=== PATIENT | female | born 1990 | race Caucasian/White ===

== ENCOUNTER 2017-02-08 20:59 | Emergency (ER) | payer OTHER ==
[2017-02-08 23:35] VITALS: BP 127/76
== END 2017-02-08 23:35 | disposition home or self-care (01) ==
LOC: ED 20:59
DX: R21 Rash and other nonspecific skin eruption (principal); K21.9 Gastro-esophageal reflux disease without esophagitis; M41.9 Scoliosis, unspecified

== ENCOUNTER 2017-11-06 09:00 | Emergency (ER) | payer OTHER ==
[~2017-11-06] VITALS: Ht 160 cm; Wt 54.4 kg
[2017-11-06 09:28] VITALS: BP 122/78; Ht 160 cm; Wt 54.4 kg
== END 2017-11-06 12:40 | disposition home or self-care (01) ==
LOC: ED 09:00
DX: R21 Rash and other nonspecific skin eruption (principal)

== ENCOUNTER 2019-02-22 19:16 | Emergency (ER) | payer OTHER ==
[~2019-02-22] VITALS: Ht 154.9 cm; Wt 60.3 kg
[2019-02-22 19:21] VITALS: Ht 154.9 cm; Wt 60.3 kg
[2019-02-22 20:56] VITALS: BP 107/63
== END 2019-02-22 20:45 | disposition home or self-care (01) ==
LOC: ED 19:16
DX: S16.1XXA Strain of muscle, fascia and tendon at neck level, initial encounter (principal); W20.8XXA Other cause of strike by thrown, projected or falling object, initial encounter; Y93.89 Activity, other specified; Y92.89 Other specified places as the place of occurrence of the external cause; Y99.8 Other external cause status
CPT/HCPCS: J1885; Q0162

== ENCOUNTER 2019-05-13 14:50 | Emergency (ER) | payer OTHER ==
[~2019-05-13] VITALS: Ht 157.5 cm; Wt 62.1 kg
[2019-05-13 15:16] VITALS: BP 132/89; Ht 157.5 cm; Wt 62.1 kg
== END 2019-05-13 15:33 | disposition home or self-care (01) ==
LOC: ED 14:50
DX: J32.1 Chronic frontal sinusitis (principal); J45.909 Unspecified asthma, uncomplicated; K21.9 Gastro-esophageal reflux disease without esophagitis

== ENCOUNTER 2019-08-21 14:27 | Emergency (ER) | payer OTHER ==
[~2019-08-21] VITALS: Ht 152.4 cm; Wt 67.1 kg
[2019-08-21 14:35] VITALS: Ht 152.4 cm; Wt 67.1 kg
[2019-08-21 15:09] LABS: BASOPHIL % 0.4 % (0-2); PLATELET COUNT 266 x10^3mcL (130-400); RED CELL DISTRIBUTION WIDTH 12.3 % (11.5-14.5)
[2019-08-21 15:32] LABS: CALCIUM 8.9 mg/dL (8.5-10.1); CARBON DIOXIDE 26.6 mmol/L (21-32); CHLORIDE SERUM 102 mmol/L (98-107); CREATININE SERUM 0.7 mg/dL (0.6-1.0); GFR1 > 60 mL/min; GLUCOSE SERUM 95 mg/dL (74-106); POTASSIUM SERUM 3.8 mmol/L (3.5-5.1); SODIUM SERUM 140 mmol/L (136-145)
[2019-08-21 15:36] LABS: ALBUMIN 4.7 g/dL (3.4-5.0); ALKALINE PHOSPHATASE 70 U/L (46-116); ALT/SGPT 21 U/L (14-59); AST/SGOT 17 U/L (15-37); BILIRUBIN TOTAL 0.7 mg/dL (0.20-1.00); TOTAL PROTEIN, SERUM 7.9 g/dL (6.4-8.2)
[2019-08-21 17:31] VITALS: BP 113/75
== END 2019-08-21 17:31 | disposition home or self-care (01) ==
LOC: ED 14:27
PROVIDERS: Emergency Medicine
DX: N83.202 Unspecified ovarian cyst, left side (principal); K21.9 Gastro-esophageal reflux disease without esophagitis; J45.909 Unspecified asthma, uncomplicated
CPT/HCPCS: 36415; Q0092

== ENCOUNTER 2019-08-27 09:57 | Emergency (ER) | payer OTHER ==
[~2019-08-27] VITALS: Ht 154.9 cm; Wt 62.1 kg
[2019-08-27 10:11] VITALS: Ht 154.9 cm; Wt 62.1 kg
[2019-08-27 13:08] VITALS: BP 103/62
== END 2019-08-27 13:08 | disposition home or self-care (01) ==
LOC: ED 09:57
DX: N83.291 Other ovarian cyst, right side (principal); J45.909 Unspecified asthma, uncomplicated; K21.9 Gastro-esophageal reflux disease without esophagitis
CPT/HCPCS: J1885